=== PATIENT | male | born 1990 | race Two or more races ===

== ENCOUNTER 2020-06-06 15:16 | Emergency (ER) | payer SELFPAY ==
--- NOTE | 2020-06-06 15:33 | NUR ---
pt stated before he is seen, he wants to call his insurance breanne Addendum: 06/06/20 at 1534 by YAHAIRA pt states he is going to step out and call his insurance company
--- NOTE | 2020-06-06 15:42 | NUR ---
went to parking lot looking for patient and he had left
--- OUTSIDE RECORDS SUMMARY | 2020-06-06 16:10 | XMS REPORT | Continuity of Care Document ---
Author Author [facility] t Organization [facility] Address [address] [place] [address] Phone Unavailable Care Team Providers Care Cylinder Worker Name Role Phone PARVIN LANCE M.D. [facility] NEO BLACK M.D. Attphys Unavailable Payers Payer Name Policy Type Policy Number Effective Date Expiration Date S ource Problems Condition Name Condition Details Condition Category Status Onset Date Resolution Date Last Treatment Date Treating Clinician Comments Source Acid reflux disease Acid reflux disease Problem Active [facility] Need for Tdap vaccination Need for Tdap vaccination Problem Active [facility] Encounter to establish care Encounter to establish care Problem Active [facility] Elevated LFTs Elevated LFTs Problem Active [facility] Overweight (BMI 25.0-29.9) Overweight (BMI 25.0-29.9) Problem Active [facility] Acute neck pain Acute neck pain Problem Active [facility] Sore throat Sore throat Problem Active [facility] Obstructive sleep apnea, adult Obstructive sleep apnea, adult Problem Active [facility] Allergies, Adverse Reactions, Alerts Allergy Name Allergy Type Status Severity Reaction(s) Onset Date Inacti ve Date Treating Clinician Comments Source No Known Allergies DA Active U 2019-04-23 00:00:00 [facility] Social History Smoking Status Start Date Stop Date Source Ex-smoker (finding) [facility]finding[facility] Medications Ordered Medication Name Filled Medication Name Start Date Stop Da te Current Medication? Ordering Clinician Indication Dosage Frequency Signature (SIG) Comments Components Source Omeprazole 40 MG Oral Capsule Delayed Release Omeprazo le 40 MG Oral Capsule Delayed Release 2020-03-10 00:00:00 Yes NEO BLACK M.D. TAKE 1 CAPSULE DAILY. [facility] Immunizations Ordered Immunization Name Filled Immunization Name Date Status Comments Source Tdap (Boostrix) 2020-03-10 15:16:00 Completed [facility] Influenza 2019-08-07 00:00:00 Completed [facility] Vital Signs Vital Name Observation Time Observation Value Comments Source Body temperature 2020-05-20 10:44:00 98.3 [degF] Method: Temporal [facility] Systolic blood pressure 2020-05-05 11:15:00 126 mm[Hg] Loca tion: LUE; Position: Sitting [facility] Diastolic blood pressure 2020-05-05 11:15:00 76 mm[Hg] Loc ation: LUE; Position: Sitting [facility] Body height 2020-05-05 11:15:00 67 [in_us] [facility] Weight 2020-05-05 11:15:00 177.6 [lb_av] [facility] Body mass index (BMI) [Ratio] 2020-05-05 11:15:00 27.82 kg/m2 [facility] Body temperature 2020-05-05 11:15:00 98 [degF] Method: Temporal [facility] Heart Rate 2020-05-05 11:15:00 81 /min Location: L Radial; [facility] Respiratory rate 2020-05-05 11:15:00 16 /min Quality: Normal U [facility] Systolic blood pressure 2020-03-10 14:29:00 126 mm[Hg] Loca tion: LUE; Position: Sitting [facility] Diastolic blood pressure 2020-03-10 14:29:00 80 mm[Hg] Loc ation: LUE; Position: Sitting [facility] Body height 2020-03-10 14:29:00 67 [in_us] [facility] Weight 2020-03-10 14:29:00 178.4375 [lb_av] [facility] Body mass index (BMI) [Ratio] 2020-03-10 14:29:00 27.95 kg/m2 [facility] Body temperature 2020-03-10 14:29:00 97.2 [degF] Method: Temporal [facility] Heart Rate 2020-03-10 14:29:00 93 /min [facility] Respiratory rate 2020-03-10 14:29:00 16 /min [facility] Procedures Procedure Date / Time Performed Performing Clinician [facility] Sleep Lab - Sleep Study Home Sleep Test 2020-05-20 00:00:00 [facility] [place] [id number] 2020-03-21 00:00:00 [place] [facility] [place] [facility] [QL] HEPATITIS PANEL 2020-03-16 00:00:00 [facility] [QL] HEPATIC FUNCTION PANEL 2020-03-14 00:00:00 [facility] [QL] TSH, 3RD GENERATION W/REFLEX TO FT4 2020-03-10 00:00:00 [facility] [QL] LIPID PANEL 2020-03-10 00:00:00 [facility] [QL] CBC (INCLUDES DIFF/PLT) 2020-03-10 00:00:00 [facility] [QL] CMP W/EGFR 2020-03-10 00:00:00 [place] [facility] [QL] HEMOGLOBIN A1c 2020-03-10 00:00:00 [facility] [Q] HELICOBACTER PYLORI, UREA BREATH TEST 2020-03-10 00:00:00 [facility] Plan of Care Planned Activity Planned Date Details Comments Source Future Appointment 2020-07-12 09:30:00 Mira LARSON. SOFIA [facility] Encounters Start Date/Time End Date/Time Encounter Type Admission Type Attendi [facility] Care Department Encounter ID Source 2020-05-20 11:00:00 2020-05-20 11:00:00 Appointment; PARVIN BOND M.D. GOMEZ-RIVERA, FERNANDO, M.D. [facility] [place] rhinolaryngology [facility] [id number] [facility] 2020-05-05 11:15:00 2020-05-05 11:15:00 Appointment; NEO BLACK M.D. JAYSWAL, MALAY, M.D. [facility] [id number] [facility] 2020-03-10 13:30:00 2020-03-10 13:30:00 Appointment; NEO BLACK M.D. NEO BLACK M.D. [facility] [id number] [facility] Results Test Description Test Time Test Comments Results Result Comments [place] [id number] 2020-03-23 11:30:00 EXAM: US JEANNA ERDATE: 03/23/2020 11:24 AM CDTINDICATION: - R79.89 Other specified abnormal findings of blood chemistryADDITIONAL INFORMATION: None.COMPARISON: 09/21/2016.TECHNIQUE: Multiplanar grayscale and color Doppler ultrasound of the abdomen.FINDINGS:Liver:Craniocaudal length: 15.3 cm.Echogenicity: Diffusely increased with attenuation of the sound beam limitingevaluation of fine details of the liver.Surface: Normal.Mass (size and location): None.Main portal vein:Caliber: 0.7 cm.Flow: Hepatopetal.Bile ducts:Common bile duct diameter: 0.4 cm. Large portion of the common bile duct isobscured on this exam.Intrahepatic ducts: Normal.Gallbladder: NormalGallstones: None.Gallbladder sludge: None.Gallbladder wall: 0.2 cm.Polyps/masses: None.Pericholecystic fluid: None.Sonographic Agudelo sign: Absent.Pancreas: Partially obscured. No focal lesions.Right kidney:Size: 9.4 x 3.7 x 3.8 cmCortical thickness: Normal.Hydronephrosis: None.Echogenicity: Normal.Calculi: None.Cysts/Masses: None.Abdominal aorta: Visible portions are normal.Inferior vena cava: Obscured on this exam. Not visualized.Free fluid: None.Other: None.IMPRESSION:Nonspecific stable increased liver echogenicity, a finding most compatible withdiffuse fatty infiltration (steatosis) of the liver.--Read by: Galen Collier MDDictated Date/time: 03/23/20 12:44Electronically Signed by: Galen Collier MD 03/23/2012:55FINAL REPORT [facility] [QL] HEPATIC FUNCTION PANEL 2020-03-15 09:15:00 Test Item PROTEIN, TOTAL (test code = PROTEIN, TOTAL) 7.3 g/dl 6.1-8.1 N ALBUMIN (test code = ALBUMIN) 4.7 g/dl 3.6-5.1 N GLOBULIN (test code = GLOBULIN) 2.6 {G/DL CALC} 1.9-3.7 N ALBUMIN/GLOBULIN RATIO (test code = ALBUMIN/GLOBULIN RATIO) 1.8 {CALC} 1.0-2.5 N BILIRUBIN, DIRECT; Normal (test code = 79942-6) 0.1 mg/dl < OR = 0.2 N BILIRUBIN, INDIRECT; Normal (test code = 1971-1) 0.7 {MG/DL TRUONG} 0 .2-1.2 N ALKALINE PHOSPHATASE (test code = ALKALINE PHOSPHATASE) 108 u/l 36-130 N AST; Above High Threshold (test code = 1916-6) 54 u/l 10-40 ALT; Above High Threshold (test code = 1742-6) 94 u/l 9-46 [facility][] LIPID [id number] 11:50:00* Test Item Value Reference Range Interpretation Comments CHOLESTEROL, TOTAL; Normal (test code = 2093-3) 181 mg/dl <200 N HDL CHOLESTEROL; Below Low Threshold (test code = 2085-9) 39 mg/dl > OR = 40 TRIGLYCERIDES; Above High Threshold (test code = 2571-8) 244 mg/dl <150 If a non-fasting specimen was collected, considerrepeat triglyceride testing on a fasting specimenif clinically indicated. Victoria et al. J. of Clin. Lipidol. 2015;9:129-169. LDL-CHOLESTEROL; Above High Threshold (test code = 96427-8) 105 {MG/DL TRUONG} Reference range: <100 Desirable range <1 00 mg/dL for primary prevention; <70 mg/dL for patients with CHD or diabetic patients with > or = 2 CHD risk factors. LDL-C is now calculated using the Mohamud-Manuela calculation, which is a validated novel method providing better accuracy than the Friedewald equation in the estimation of LDL-C. Mohamud SS et al. YAMILA. 2013;310(19): 1780-3046 (http ://education.[employer].PEPperPRINT/faq/OEO697) CHOL/HDLC RATIO (test code = CHOL/HDLC RATIO) 4.6 {CALC} <5.0 N NON HDL CHOLESTEROL (test code = NON HDL CHOLESTEROL) 142 {MG/DL C AL} <130 For patients with diabetes plus 1 major ASCVD risk factor, treating to a non-HDL-C goal of <100 mg/dL (LDL-C of <70 mg/dL) is considered a therapeutic option. [facility][QL] CMP [id number] 11:50:00* Test Item Value Reference Range Interpretation Comments GLUCOSE; Normal (test code = 1547-9) 95 mg/dl 65-99 N Fasting reference interval UREA NITROGEN (BUN) (test code = UREA NITROGEN (BUN)) 10 mg/dl 7-25 N CREATININE (test code = CREATININE) 1.01 mg/dl 0.60-1.35 N eGFR NON- (test code = eGFR NON-SHERRY N [facility]) 99 {ML/MIN/1.7} > OR = 60 N eGFR (test code = eGFR ) 11 4 {ML/MIN/1.7} > OR = 60 N BUN/CREATININE RATIO (test code = BUN/CREATININE RATIO) NOT APPLICA BLE 6-22 SODIUM (test code = SODIUM) 137 mmol/L 135-146 N POTASSIUM (test code = POTASSIUM) 4.4 mmol/L 3.5-5.3 N CHLORIDE (test code = CHLORIDE) 103 mmol/L 98-110 N CARBON DIOXIDE (test code = CARBON DIOXIDE) 23 mmol/L 20-32 N CALCIUM (test code = CALCIUM) 9.4 mg/dl 8.6-10.3 N PROTEIN, TOTAL (test code = PROTEIN, TOTAL) 7.2 g/dl 6.1-8.1 N ALBUMIN (test code = ALBUMIN) 4.4 g/dl 3.6-5.1 N GLOBULIN (test code = GLOBULIN) 2.8 {G/DL CALC} 1.9-3.7 N ALBUMIN/GLOBULIN RATIO (test code = ALBUMIN/GLOBULIN RATIO) 1.6 {CALC} 1.0-2.5 N BILIRUBIN, TOTAL; Normal (test code = 92678-5) 0.8 mg/dl 0.2-1.2 N ALKALINE PHSPHATASE (test code = ALKALINE PHSPHATASE) 112 u/l 36-130 N AST; Above High Threshold (test code = 1916-6) 52 u/l 10-40 ALT; Above High Threshold (test code = 1742-6) 92 u/l 9-46 eGFR NON-AFR. [facility] (test code = eGFR NON-AFR. [facility]) 99 {ML/MIN/1.7} > OR = 60 N ALKALINE PHOSPHATASE (test code = ALKALINE PHOSPHATASE) 112 u/l 36-130 N [facility][QL] CBC (INCLUDES DIFF/PLT)2020-03-11 11:50:00* Test Item Value Reference Range Interpretation Comments WHITE BLOOD CELL COUNT (test code = WHITE BLOOD CELL COUNT) 8.5 {Thousand/u} 3.8-10.8 N RED BLOOD CELL COUNT (test code = RED BLOOD CELL COUNT) 4.92 {Million/uL} 4.20-5.80 N HEMOGLOBIN; Normal (test code = 29086-6) 14.9 g/dl 13.2-17.1 N HEMATOCRIT; Normal (test code = 4544-3) 44.4 % 38.5-50.0 N MCV; Normal (test code = 787-2) 90.2 fL 80.0-100.0 N MCHC; Normal (test code = 81461-5) 33.6 g/dl 32.0-36.0 N RDW; Normal (test code = 788-0) 13.1 % 11.0-15.0 N PLATELET COUNT; Normal (test code = 777-3) 222 {Thousand/u} 140-400 N MPV; Normal (test code = 10866-0) 11.2 fL 7.5-12.5 N ABSOLUTE NEUTROPHILS (test code = ABSOLUTE NEUTROPHILS) 5517 {cells/uL} 1360-2932 N ABSOLUTE LYMPHOCYTES (test code = ABSOLUTE LYMPHOCYTES) 2295 {cells/uL} 850-3900 N ABSOLUTE MONOCYTES (test code = ABSOLUTE MONOCYTES) 468 {cells/uL} 200-950 N ABSOLUTE EOSINOPHILS (test code = ABSOLUTE EOSINOPHILS) 162 {cells/ uL} 15-500 N ABSOLUTE BASOPHILS (test code = ABSOLUTE BASOPHILS) 60 {cells/uL} 0 -200 N NEUTROPHILS (test code = NEUTROPHILS) 64.9 % N LYMPHOCYTES (test code = LYMPHOCYTES) 27.0 % N MONOCYTES; Normal (test code = 02166-8) 5.5 % N EOSINOPHILS; Normal (test code = 88170-9) 1.9 % N BASOPHILS; Normal (test code = 91056-4) 0.7 % N [facility][QL] TSH, 3RD GENERATION W/REFLEX TO [id number] 11:50:00* Test Item Value Reference Range Interpretation Comments TSH, 3RD GENERATION W/REFLEX TO FT4 (desire t code = TSH, 3RD GENERATION W/REFLEX TO FT4) 1.36 {MIU/L} 0.40-4.50 N [facility][QL] HEMOGLOBIN [id number] 11:50:00* Test Item Value Reference Range Interpretation Comments HEMOGLOBIN A1c; Above High Threshold (test code = 4548-4) 6.2 {% of total} <5.7 For someone without known diabetes, a he moglobin A1c value between 5.7% and 6.4% is consistent withprediabetes and should be confirmed with a follow-up test. For someone with known diabetes, a value <7%indicates that their diabetes is well controlled. K2gjplppkh should be individualized based on duration ofdiabetes, age, comorbid conditions, and otherconsiderations. This assay result is consistent with an increased riskof diabetes. Currently, no consensus exists regarding use ofhemoglobin A1c for diagnosis of diabetes for children. [facility][QL] Helicobacter pylori Breath [id number] 11:50:00* Test Item Value Reference Range Interpretation Comments HELICOBACTER PYLORI, UREA BREATH TEST RE SULT: (test code = HELICOBACTER PYLORI, UREA BREATH TEST RESULT:) NOT DETECTED NOT DETECTED N Antimi crobials, proton pump inhibitors, and bismuthpreparations are known to suppress H. pylori, and ingestion of these prior to H. pylori diagnostic testingmay lead to false negative results. If clinically indicated, the test may be repeated on a new specimenobtained two weeks after discontinuing treatment.However, a positive result is still clinically valid. [facility]00 RUN DATE: 04/27/19 [place] - Lab PAGE 1 RUN TIME: 1428 Specimen Inqui ry RUN USER: INTERFACE PATIENT: BRITTANI Maldonado ACCT #: [id number] [facility] [place] #: [id number] AGE/SX: 28/M ROOM: RE04/24/19[facility] DR: Oswaldo Jimenez MD : 88 BED: DIS: STATUS: [facility] TLOC: SPEC #: [id number] RECD: 04/24/19 STATUS: IAM RE #: [id number] MAN[place]OR: 04/24/19- SUBM DR: Owsaldo Jimenez MD ENTERED: 04/24/19 SP TYPE: STOMACH OTHR DR: ORDERED: GROSS PROCEDURES: GROSS (04/27/19-1019) TISSUES: 1. DUODENUM, NOS - BX 2. GASTRIC CORPUS - BX CLINICAL HISTORY COLLECTION DATE: 04/24/19 ACID REFLUX FINAL DIAGNOSIS Duodenum, biopsy: DUODENAL MUCOSA, NO PATHOLOGIC ALTERATION Ga stric biopsy: MILD CHRONIC INFLAMMATION, GASTRIC MUCOSA NO INTESTI NAL METAPLASIA SEEN NEGATIVE FOR HELICOBACTER PYLORI NEGATIVE FOR MALIGNANCY DMW/sm D [id number], [id number] The fir st specimen is received in formalin, labeled with the patient's name, identifi ed as "duodenum", and consists of multiple pierre biopsy tissue measuring 1.5 x 0 .4 x 0.2 cm, submitted as (1). The second specimen is received in formalin , labeled with the patient's name, identified as "gastric bx", and consists of multiple pierre biopsy tissue measuring 0.6 x 0.4 x 0.2 cm in aggregate, submitt ed as (2). An H E and a Giemsa stain will be prepared. [place] PERFORMED A T [facility] [address] [facility] CONTINUED ON NEXT PAGE --------- ---RUN DATE: 04/27/19 [facility] Lab PAGE 2 RUN TIME: 1427 Specimen Inquiry RUN USER: INTERFACE SPEC #: [id number] PATIENT: BRITTANI Maldonado #[id number] (Continued) MACROSCOPIC (Continued) [place] [id number] (P)[phone] MICROSCOPIC A ll of the stains, including any controls performed, stain appropriately. MICROSCOPIC PERFORMED AT [facility] [address] [place] [address] (P)[phone] PERFORMING SITE Diagnosis performed at: [facility], [place] [address], [place] [address] Signed SIGNATURE ON FILE Dede Allen MD 04/27/19 1427 END OF REPORT
== END 2020-06-06 15:50 | disposition short-term general hospital (02) ==
LOC: FSED 15:30
DX: R19.7 Diarrhea, unspecified (principal)